=== PATIENT | female | born 1965 | race Caucasian/White ===

== ENCOUNTER 2017-04-09 08:53 | Outpatient (CLI) | payer OTHER | END 2017-04-09 08:54 | disposition home or self-care (01) | LOC: BICMAMMO 08:53 | PROVIDERS: ATTEND Obstetrics & Gynecology | DX: Z12.31 Encounter for screening mammogram for malignant neoplasm of breast (principal) | CPT/HCPCS: 77063 ==

== ENCOUNTER 2017-09-28 15:05 | Emergency (ER) | payer BC, OTHER ==
[2017-09-28] MEDS ORDERED: Lidocaine Viscous Sol 2% 15 ml UD Cup ONE (15:22)
[2017-09-28] MEDS ORDERED: Famotidine 20 MG TAB ONE (15:22)
[2017-09-28] MEDS ORDERED: Mag-Al Plus 1200 MG/1200 MG/120 MG/30 ML UDCUP ONE (15:23)
--- NOTE | 2017-09-28 15:36 | RAD ---
AP CHEST: History: Chest pain Date: 09-28-17 FINDINGS: The lungs are well aerated. No evidence of active intrathoracic disease seen. No evidence of effusion s, pneumonia, or pneumothorax seen. IMPRESSION: Unremarkable AP chest. POS: C
[2017-09-28 15:39] LABS: #Basophils 0.1 thou/uL (0.0-0.2); #Eosinphils 0.2 thou/uL (0.0-0.7); #Lymphocytes 3.1 thou/uL (1.20-3.40); #Monocytes 0.5 thou/uL (0.11-0.59); %Basophils 1.4 % (0.0-1.0); %Eosinophils 2.3 % (0.0-10.0); %Lymphocytes 34.7 % (21.0-51.0); %Monocytes 5.3 % (0.0-10.0); %Neutrophils 56.3 % (42.0-75.0); Hemoglobin 12.4 g/dL (12.0-16.0); Mean Corpuscular HGB CONC 35.1 g/dL (32.0-36.0); Mean Corpuscular Hemoglobin 30.7 pg (27.0-31.0); Mean Corpuscular Volume 87.4 fl (81.0-99.0); Mean Platelet Volume 6.8 fL (7.4-10.4); Platelet Count 280 thou/uL (130-400); RBC Distribution Width 11.1 % (11.5-14.5); Red Blood Cell (RBC) Count 4.03 mill/uL (4.20-5.40); White Blood Cell (WBC) Count 8.9 thou/uL (4.8-10.8)
[2017-09-28 15:57] LABS: ALT (SGPT) 17 U/L (8-55); AST (SGOT) 16 U/L (5-34); Albumin 4.4 g/dL (3.5-5.0); Alkaline Phosphatase 65 U/L (40-150); Anion Gap 13 mmol/L (10-20); BUN (Urea Nitrogen) 14 mg/dL (9.8-20.1); Bilirubin, Total 0.3 mg/dL (0.2-1.2); CK (CPK) 54 U/L (29-168); CKMB 0.6 ng/mL (0-6.6); Calc. Creatinine Clearance 0 mL/min (70-130); Calcium 9.4 mg/dL (7.8-10.44); Carbon Dioxide 24 mmol/L (22-29); Chloride 107 mmol/L (98-107); Estimated GFR-MDRD 80; Globulin 2.8 g/dL (2.4-3.5); Glucose 111 mg/dL (70-105); Lipase 34 U/L (8-78); Protein, Total 7.2 g/dL (6.0-8.3); Sodium 140 mmol/L (136-145); Troponin I Less than 0.010 ng/mL (< 0.028)
== END 2017-09-28 16:22 | disposition home or self-care (01) ==
LOC: SCSER 15:05
DX: K22.4 Dyskinesia of esophagus (principal); F41.9 Anxiety disorder, unspecified; Z79.899 Other long term (current) drug therapy
CPT/HCPCS: 36415; 71045; 80053; 82550; 82553; 83690; 84484; 85025; 93005

== ENCOUNTER 2018-04-11 09:06 | Outpatient (CLI) | payer OTHER ==
--- NOTE | 2018-04-11 13:15 | MMO ---
BILATERAL SCREENING MAMMOGRAM: Date: 04/11/18 COMPARISON: 04/09/17 and 04/07/16. HISTORY: Screening mammography. FINDINGS: This patient's mammogram was interpreted with the assistance of computer-aided detection. Scattered fibroglandular densities are present. Benign calcification noted on the right. No dominant mass or architectural distortion. No concerning calcifications noted. There is a stable intramammary node laterally on the left. IMPRESSION: BIRADS 2: Benign Finding(s) Annual screening mammography recommended. POS: RACHEL
== END 2018-04-11 09:07 | disposition home or self-care (01) ==
LOC: SCSMAMMO 09:06
PROVIDERS: ATTEND Obstetrics & Gynecology
DX: Z12.31 Encounter for screening mammogram for malignant neoplasm of breast (principal)
CPT/HCPCS: 77067

== ENCOUNTER 2019-04-17 10:02 | Outpatient (CLI) | payer OTHER ==
--- NOTE | 2019-04-17 12:59 | MMO ---
Bilateral MAMMO Bilat Screen [facility]. CLINICAL HISTORY: Patient is 54 years old and is seen for screening. The patient family history of breast cancer is unknown. The patient has no personal history of cancer. VIEWS: The views performed were: bilateral craniocaudal with tomosynthesis and bilateral mediolateral oblique with tomosynthesis. FILMS COMPARED: The present examination has been compared to prior imaging studies performed at [facility] on 04/04/2014, 04/05/2015, 04/07/2016 and 04/09/2017. This study has been interpreted with the assistance of computer-aided detection. MAMMOGRAM FINDINGS: There are scattered fibroglandular densities. There are no suspicious masses, suspicious calcifications, or new areas of architectural distortion. IMPRESSION: THERE IS NO MAMMOGRAPHIC EVIDENCE OF MALIGNANCY. A ROUTINE FOLLOW-UP MAMMOGRAM IN 1 YEAR IS RECOMMENDED. THE RESULTS OF THIS EXAM WERE SENT TO THE PATIENT. ACR BI-RADS Category 1 - Negative MAMMOGRAPHY NOTE: 1. A negative mammogram report should not delay a biopsy if a dominant of clinically suspicious mass is present. 2. Approximately 10% to 15% of breast cancers are not detected by mammography. 3. Adenosis and dense breasts may obscure an underlying neoplasm. Reported by: JAYLA POOLE MD Electonically Signed: [id number]
== END 2019-04-17 10:03 | disposition home or self-care (01) ==
LOC: BICMAMMO 10:02
PROVIDERS: ATTEND Obstetrics & Gynecology
DX: Z12.31 Encounter for screening mammogram for malignant neoplasm of breast (principal)
CPT/HCPCS: 77063; 77067

== ENCOUNTER 2020-04-18 10:14 | Outpatient (CLI) | payer OTHER ==
--- NOTE | 2020-04-18 10:56 | MMO ---
Bilateral MAMMO Bilat Screen [facility]. CLINICAL HISTORY: Patient is 55 years old and is seen for screening. The patient family history of breast cancer is unknown. The patient has no personal history of cancer. VIEWS: The views performed were: bilateral craniocaudal with tomosynthesis and bilateral mediolateral oblique with tomosynthesis. FILMS COMPARED: The present examination has been compared to prior imaging studies performed at [facility] on 04/05/2015, 04/07/2016, 04/09/2017 and 04/17/2019. This study has been interpreted with the assistance of computer-aided detection. MAMMOGRAM FINDINGS: There are scattered fibroglandular densities. There are no suspicious masses, suspicious calcifications, or new areas of architectural distortion. IMPRESSION: THERE IS NO MAMMOGRAPHIC EVIDENCE OF MALIGNANCY. A ROUTINE FOLLOW-UP MAMMOGRAM IN 1 YEAR IS RECOMMENDED. THE RESULTS OF THIS EXAM WERE SENT TO THE PATIENT. ACR BI-RADS Category 1 - Negative MAMMOGRAPHY NOTE: 1. A negative mammogram report should not delay a biopsy if a dominant of clinically suspicious mass is present. 2. Approximately 10% to 15% of breast cancers are not detected by mammography. 3. Adenosis and dense breasts may obscure an underlying neoplasm. Reported by: ALBARO ADHIKARI MD Electonically Signed: [id number]
== END 2020-04-18 10:15 | disposition home or self-care (01) ==
LOC: BICMAMMO 10:14
PROVIDERS: ATTEND Obstetrics & Gynecology
DX: Z12.31 Encounter for screening mammogram for malignant neoplasm of breast (principal)
CPT/HCPCS: 77063; 77067